=== PATIENT | male | born 1945 | race African-American/Black ===

== ENCOUNTER 2022-01-14 17:54 | Inpatient (IN) ==
[2022-01-14 18:55] LABS: Immature Granulocytes % 4.3 %; Immature Granulocytes Absolute 0.04 #; Lymphocytes # 0.3 10*3/uL (1.4-4.0); Lymphocytes % 35.1 % (21.2-54.2); Mean Corpuscular HGB Conc 32.6 GM/DL (32-36); Mean Corpuscular Volume 88.4 FL (87-102); Monocytes # 0.1 10*3/uL (0.11-0.8); Monocytes % 12.8 % (1.7-12.7); Neutrophils % 47.8 % (38.7-73.9); Red Blood Count 2.15 MC/CUMM (3.8-5.5); Red Cell Distribution Width 15.9 % (9.3-17.3)
[2022-01-14 18:59] LABS: Hemoglobin 6.2 GM/DL (14.0-18.0); Platelet Count 31 T/CUMM (130-400); White Blood Count 0.9 T/CUMM (4-12)
[2022-01-14 19:05] LABS: Calcium 8.9 MG/DL (8.5-10.1); Osmolality,Calculated 281.7 MOS/KG (273-304); Potassium 3.7 MMOL/L (3.5-5.1)
[2022-01-14 19:21] LABS: Band Neutrophils 2 % (0-10); Lymphocytes 39 % (20-55); Total Cells Counted 100
[2022-01-14 19:22] LABS: Anisocytosis 1+; Elliptocytes Few; Hypochromia 1+
[2022-01-14 19:23] LABS: Platelet Estimate Decreased; Polychromasia Few; Schistocytes Few
[2022-01-14] MEDS ORDERED: FILGRASTIM-SNDZ 300 MCG/0.5 ML SYRINGE SUBCUT STA (19:27)
[2022-01-14] MEDS ORDERED: LEVOFLOXACIN INJ 750 MG/150 ML PREMIX IV STA (19:29)
[2022-01-14] MEDS ORDERED: SODIUM CHLORIDE 0.9% 1,000 ML IV PRN (19:31)
[2022-01-14] MEDS ORDERED: MORPHINE 2 MG/1 ML SYRINGE IV PRN (20:35)
[2022-01-14] MEDS ORDERED: ONDANSETRON 4 MG/2 ML VIAL IV PRN (20:35)
[2022-01-14] MEDS ORDERED: hydrALAZINE 20 MG/1 ML VIAL IV PRN (20:35)
[2022-01-14] MEDS ORDERED: GLUCAGON 1 MG VIAL IM PRN (20:35)
[2022-01-14] MEDS ORDERED: MELATONIN 3 MG TABLET PO PRN (20:43)
[2022-01-14] MEDS ORDERED: DEXTROSE 10% 250 ML BAG IV PRN (20:44)
[2022-01-14] MEDS: ACETAMINOPHEN 325 MG TABLET PO PRN (20:55)
[2022-01-14] MEDS ORDERED: ALBUTEROL INHALER 18 GM INH PRN (21:05)
[2022-01-14 21:07] LABS: Bilirubin,Urine Negative (Negative); Blood, Urine Small mg/dL (Negative); Glucose,Urine (UA) 50 mg/dL (Negative); Ketones,Urine Negative (Negative); Mucus,Urine Occasional /LPF (Occasional); Nitrite,Urine Negative (Negative); Protein,Urine Negative (Negative); RBC,Urine <1 /HPF (0-4); Squamous Epithelial Cell,Urine Occasional /HPF (0-10); Urine Appearance CLEAR (Clear); Urine Color Yellow (Yellow); Urine Specific Gravity 1.012 (1.001-1.035)
[2022-01-14] MEDS ORDERED: MAGNESIUM SULF RIDER 2 GM/50 ML PREMIX IV ONE (21:17)
[2022-01-14] MEDS: FAMOTIDINE 20 MG TABLET PO SCH (23:23)
[2022-01-14] MEDS: ASCORBIC ACID 500 MG TABLET PO SCH (23:23)
[2022-01-15] MEDS: ACETAMINOPHEN 325 MG TABLET PO PRN (05:32)
[2022-01-15 06:06] LABS: Hematocrit 21.3 VOL% (42.0-52.0); Hemoglobin 7.1 GM/DL (14.0-18.0); Immature Granulocytes % 3.6 %; Immature Granulocytes Absolute 0.03 #; Lymphocytes # 0.2 10*3/uL (1.4-4.0); Lymphocytes % 28.9 % (21.2-54.2); Mean Corpuscular HGB Conc 33.3 GM/DL (32-36); Monocytes # 0.1 10*3/uL (0.11-0.8); Monocytes % 13.3 % (1.7-12.7); Neutrophils % 54.2 % (38.7-73.9); Red Blood Count 2.42 MC/CUMM (3.8-5.5)
[2022-01-15 06:12] LABS: Platelet Count 26 T/CUMM (130-400); White Blood Count 0.8 T/CUMM (4-12)
[2022-01-15 06:23] LABS: Albumin 2.9 G/DL (3.4-5.0); Bilirubin,Total 1.1 MG/DL (0.20-1.00); Calcium 8.9 MG/DL (8.5-10.1); Osmolality,Calculated 280.5 MOS/KG (273-304); Potassium 3.6 MMOL/L (3.5-5.1); Total Protein 6.9 G/DL (6.4-8.2)
[2022-01-15 06:37] LABS: Ferritin 405.8 ng/mL (26-388)
[2022-01-15 07:04] LABS: Lymphocytes 40 % (20-55); Total Cells Counted 100
[2022-01-15 07:05] LABS: Anisocytosis 1+; Hypochromia 1+; Microcytosis 1+
[2022-01-15 07:06] LABS: Ovalocytes 1+; Platelet Estimate Decreased
[2022-01-15] MEDS: INSULIN LISPRO 100 UNIT/ML SUBCUT SCH ×4 (09:57→21:04)
[2022-01-15] MEDS: DEXAMETHASONE 4 MG/1 ML VIAL IV SCH (09:58)
[2022-01-15] MEDS: CETIRIZINE 10 MG TABLET PO SCH (09:58)
[2022-01-15] MEDS: PANTOPRAZOLE 40 MG TABLET PO SCH (09:58)
[2022-01-15] MEDS: CEFEPIME 1,000 MG in SODIUM CHLORIDE 0.9% 100 ML IV SCH ×3 (09:58→21:05)
[2022-01-15] MEDS: ASCORBIC ACID 500 MG TABLET PO SCH ×2 (09:59→21:03)
[2022-01-15] MEDS: FAMOTIDINE 20 MG TABLET PO SCH ×2 (09:59→21:03)
[2022-01-15] MEDS: CHOLECALCIFEROL 1,000 UNIT TABLET PO SCH (09:59)
[2022-01-15] MEDS: ZINC GLUCONATE 50 MG TABLET PO SCH (09:59)
[2022-01-15] MEDS ORDERED: REMDESIVIR 200 MG in SODIUM CHLORIDE 0.9% 210 ML IV ONE (17:00)
[2022-01-15] MEDS: FILGRASTIM-SNDZ 300 MCG/0.5 ML SYRINGE SUBCUT SCH (17:09)
[2022-01-16] MEDS: CEFEPIME 1,000 MG in SODIUM CHLORIDE 0.9% 100 ML IV SCH ×4 (02:11→21:01)
[2022-01-16 05:22] LABS: Hematocrit 26.7 VOL% (42.0-52.0); Hemoglobin 8.9 GM/DL (14.0-18.0)
[2022-01-16 08:28] LABS: Basophils % 0.8 % (0.0-0.8); Eosinophils % 0.8 % (0.00-10.9); Hematocrit 26.8 VOL% (42.0-52.0); Hemoglobin 8.8 GM/DL (14.0-18.0); Immature Granulocytes % 10.5 %; Immature Granulocytes Absolute 0.13 #; Lymphocytes # 0.2 10*3/uL (1.4-4.0); Lymphocytes % 19.4 % (21.2-54.2); Mean Corpuscular HGB Conc 32.8 GM/DL (32-36); Monocytes # 0.2 10*3/uL (0.11-0.8); Monocytes % 16.1 % (1.7-12.7); Neutrophils % 52.4 % (38.7-73.9); Red Blood Count 3.08 MC/CUMM (3.8-5.5); Red Cell Distribution Width 15.7 % (9.3-17.3); White Blood Count 1.2 T/CUMM (4-12)
[2022-01-16 08:31] LABS: Platelet Count 24 T/CUMM (130-400)
[2022-01-16 08:55] LABS: Atypical Lymphocytes Few; Band Neutrophils 1 % (0-10); Hypochromia 1+; Lymphocytes 31 % (20-55); Microcytosis 1+; Ovalocytes Slight; Platelet Estimate Decreased; Total Cells Counted 100
[2022-01-16 09:08] LABS: Bilirubin,Total 0.8 MG/DL (0.20-1.00); Calcium 8.9 MG/DL (8.5-10.1); Osmolality,Calculated 281.4 MOS/KG (273-304); Potassium 3.7 MMOL/L (3.5-5.1); Total Protein 6.5 G/DL (6.4-8.2)
[2022-01-16] MEDS: INSULIN LISPRO 100 UNIT/ML SUBCUT SCH ×4 (10:41→20:43)
[2022-01-16] MEDS: FAMOTIDINE 20 MG TABLET PO SCH ×2 (10:43→20:43)
[2022-01-16] MEDS: PANTOPRAZOLE 40 MG TABLET PO SCH (10:43)
[2022-01-16] MEDS: REMDESIVIR 100 MG in SODIUM CHLORIDE 0.9% 100 ML IV SCH (10:43)
[2022-01-16] MEDS: DEXAMETHASONE 4 MG/1 ML VIAL IV SCH (10:43)
[2022-01-16] MEDS: CHOLECALCIFEROL 1,000 UNIT TABLET PO SCH (10:44)
[2022-01-16] MEDS: ASCORBIC ACID 500 MG TABLET PO SCH ×2 (10:44→20:43)
[2022-01-16] MEDS: ZINC GLUCONATE 50 MG TABLET PO SCH (10:45)
[2022-01-16] MEDS: CETIRIZINE 10 MG TABLET PO SCH (10:45)
[2022-01-16] MEDS: FILGRASTIM-SNDZ 300 MCG/0.5 ML SYRINGE SUBCUT SCH (12:10)
[2022-01-16] MEDS: ACETAMINOPHEN 325 MG TABLET PO PRN (19:27)
[2022-01-17] MEDS: CEFEPIME 1,000 MG in SODIUM CHLORIDE 0.9% 100 ML IV SCH ×2 (03:04→10:29)
[2022-01-17 05:38] LABS: Hematocrit 26.1 VOL% (42.0-52.0); Hemoglobin 8.6 GM/DL (14.0-18.0); Immature Granulocytes % 8.2 %; Immature Granulocytes Absolute 0.08 #; Lymphocytes # 0.2 10*3/uL (1.4-4.0); Lymphocytes % 19.6 % (21.2-54.2); Mean Corpuscular Volume 87.9 FL (87-102); Monocytes # 0.2 10*3/uL (0.11-0.8); Monocytes % 18.6 % (1.7-12.7); Neutrophils % 51.6 % (38.7-73.9); Red Blood Count 2.97 MC/CUMM (3.8-5.5); Red Cell Distribution Width 15.7 % (9.3-17.3)
[2022-01-17 05:41] LABS: Albumin 2.8 G/DL (3.4-5.0); Bilirubin,Total 1.2 MG/DL (0.20-1.00); Osmolality,Calculated 282.4 MOS/KG (273-304); Potassium 3.4 MMOL/L (3.5-5.1); Total Protein 6.7 G/DL (6.4-8.2)
[2022-01-17 05:44] LABS: Platelet Count 22 T/CUMM (130-400)
[2022-01-17 07:29] LABS: Atypical Lymphocytes Few; Eosinophils 2 % (0-10); Hypochromia 1+; Lymphocytes 28 % (20-55); Microcytosis 1+; Platelet Estimate Decreased; Total Cells Counted 100
[2022-01-17] MEDS ORDERED: POTASSIUM CHLORIDE 20 MEQ TABLET PO ONE (07:57)
[2022-01-17] MEDS: INSULIN LISPRO 100 UNIT/ML SUBCUT SCH ×2 (10:16→12:19)
[2022-01-17] MEDS: CHOLECALCIFEROL 1,000 UNIT TABLET PO SCH (10:26)
[2022-01-17] MEDS: ASCORBIC ACID 500 MG TABLET PO SCH (10:27)
[2022-01-17] MEDS: ZINC GLUCONATE 50 MG TABLET PO SCH (10:27)
[2022-01-17] MEDS: PANTOPRAZOLE 40 MG TABLET PO SCH (10:28)
[2022-01-17] MEDS: FAMOTIDINE 20 MG TABLET PO SCH (10:28)
[2022-01-17] MEDS: DEXAMETHASONE 4 MG/1 ML VIAL IV SCH (10:28)
[2022-01-17] MEDS: FILGRASTIM-SNDZ 300 MCG/0.5 ML SYRINGE SUBCUT SCH (10:36)
[2022-01-17] MEDS: CETIRIZINE 10 MG TABLET PO SCH (10:42)
[2022-01-17] MEDS: REMDESIVIR 100 MG in SODIUM CHLORIDE 0.9% 100 ML IV SCH (10:42)
[2022-01-17 12:03] VITALS: BP 155/87
== END 2022-01-17 14:30 | disposition home or self-care (01) | DRG 177 ==
LOC: N.ED 17:54 → N.EDINP 20:35 → N.5E 21:18
PROVIDERS: ADMIT Family Medicine; ATTEND Family Medicine